=== PATIENT | male | born 1950 | race Caucasian/White ===

== ENCOUNTER 2020-08-18 15:16 | Emergency (ER) | payer OTHER, MEDICARE ==
[2020-08-18 17:47] LABS: Absolute Lymphocytes (CBC) 1.8 K/uL (0.7-4.9); Basophils % 0.8 % (0-1.3); Lymphocytes % 20.2 % (15.3-44.8); MPV 9.1 fL (7.6-11.3); RBC Red Blood Cell Count 4.63 M/uL (4.33-5.43)
[2020-08-18 18:08] LABS: Albumin 3.8 g/dL (3.4-5.0); Bilirubin Total 0.5 mg/dL (0.2-1.0); Protein, Total 6.8 g/dL (6.4-8.2)
--- NOTE | 2020-08-18 18:10 | RAD REPORT ---
EXAM DESCRIPTION: CT - Head Brain Wo Cont - 08/18/2020 6:00 pm CLINICAL HISTORY: Headache COMPARISON: None TECHNIQUE: Computed axial tomography of the head was obtained. IV contrast was not requested. All CT scans are performed using dose optimization technique as appropriate and may include automated exposure control or mA/KV adjustment according to patient size. FINDINGS: An intracranial bleed is not seen . The ventricles are normal in caliber. No extra-axial fluid collection is noted. A 3.3 centimeter low-density area left basal ganglia extending into the left internal capsule compati ble with an old CVA. 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 2.3 centimeter low-density area right basal ganglia extending into [place] radiata has the appearance of a late subacute or old infarct. Left maxillary sinusitis If patient's symptoms persist MRI of the brain would be recommended.
--- NOTE | 2020-08-18 19:05 | EDPHYS ---
Physician Documentation [facility] Name: Aydin Aldridge Age: 69 yrs Sex: Male : 1950 Arrival Date: 08/18/2020 Time: 15:21 Bed 7 Private MD: ED Physician Phuc Todd HPI: 08/18 17:32 This 69 yrs old Male presents to ER via Ambulatory with complaints of High pm1 Blood Pressure. 17:32 The patient has elevated blood pressure and discovered this at home, with a home pm1 device. Onset: The symptoms/episode began/occurred yesterday. Associated signs and symptoms: Pertinent positives: headache, fatigue for 2 days, Pertinent negatives: chest pain, dizziness, visual changes, vomiting, shortness of breath. Severity of symptoms: in the emergency department the blood pressure is unchanged. The patient has been recently seen by a physician: the patient's primary care provider, Dr. Novak with similar presenting complaints, blood pressure was within normal limits at the patient's recent PCP visit but he reports that his systolic readings have been elevated to the 180s. 17:32 Patient presenting to the ER because he is concerned that his blood pressure can lead pm1 to another stroke. No new neuro deficits present. Historical: - Allergies: 15:53 No Known Allergies; ll1 - PMHx: 15:58 CVA; Hypertension; metoprolol; Diabetes - NIDDM; metformin; High Cholesterol; ll1 atorvastatin; - PSHx: 15:58 knee SX x 2; Tonsillectomy; ll1 - Immunization history:: Flu vaccine is not up to date. Client reports receiving the 1st dose of the Covid vaccine. - Social history:: Smoking status: Patient denies any tobacco usage or history of. ROS: 17:32 Eyes: Negative for injury, pain, redness, and discharge, ENT: Negative for injury, pm1 pain, and discharge, Neck: Negative for injury, pain, and swelling, Cardiovascular: Negative for chest pain, palpitations, and edema, Respiratory: Negative for shortness of breath, cough, wheezing, and pleuritic chest pain, Abdomen/GI: Negative for abdominal pain, nausea, vomiting, diarrhea, and constipation. 17:32 Back: Negative for injury and pain, MS/Extremity: Negative for injury and deformity, Skin: Negative for injury, rash, and discoloration. 17:32 Constitutional: Positive for fatigue, Negative for body aches, fever, poor PO intake. 17:32 Neuro: Positive for headache, Negative for numbness, tingling, weakness. Exam: 17:32 Constitutional: This is a well developed, well nourished patient who is awake, alert, pm1 and in no acute distress. Head/Face: Normocephalic, atraumatic. 17:32 Back: No spinal tenderness. No costovertebral tenderness. Full range of motion. 17:32 Skin: Warm, dry with normal turgor. Normal color with no rashes, no lesions, and no evidence of cellulitis. MS/ Extremity: Pulses equal, no cyanosis. Neurovascular intact. Full, normal range of motion. 17:32 Cardiovascular: Exam negative for acute changes, Rate: normal, Rhythm: regular, Pulses: no pulse deficits are appreciated, Edema: is not appreciated. 17:32 Respiratory: Exam negative for acute changes, respiratory distress, shortness of breath, Breath sounds: are clear throughout. 17:32 Abdomen/GI: Inspection: abdomen appears normal, Palpation: abdomen is soft and non-tender, in all quadrants. 17:32 Neuro: Exam negative for acute changes, Orientation: is normal, Mentation: is normal, Motor: is normal, moves all fours, Sensation: is normal, no obvious gross deficits. Vital Signs: 15:53 BP 179 / 91; Pulse 96; Resp 17; Temp 98.1; Pulse Ox 99% on R/A; Weight 83.91 kg; Height ll1 5 ft. 9 in. (175.26 cm); Pain 0/10; 18:29 BP 148 / 82; Pulse 88; Resp 15; Pulse Ox 99% on R/A; hb 19:00 BP 148 / 84 LA Supine (man/); hb 15:53 Body Mass Index 27.32 (83.91 kg, 175.26 cm) ll1 MDM: 17:30 Patient medically screened. pm1 17:32 ED course: Patient and not interested in getting EKG or chest x-ray. pm1 18:43 Counseling: I had a detailed discussion with the patient and/or guardian regarding: the pm1 historical points, exam findings, and any diagnostic results supporting the discharge/admit diagnosis, lab results, radiology results, I discussed the findings with the patient and and they do not know if his prior imaging had the 2.3 centimeter low-density area in the right basal ganglia. Patient last MRI at [place] in May. Patient without any neuro deficit changes and he does not want to stay in the hospital. I discussed the findings with with Dr. Todd and he recommended I discuss the plan of care with Dr. Novak: follow up tomorrow in the office tomorrow and get MRI if needed. Patient without any new neuro deficits and likely old infarcts. 18:57 Data reviewed: vital signs. Data interpreted: Pulse oximetry: on room air is 99 %. pm1 Interpretation: normal. 19:06 Physician consultation: Zaid Novak MD was called at 18:53, was contacted at 18:53, pm1 regarding patient's condition, He is aware of CT head findings and said that they are old. Regarding left maxillary sinusitis on CT, do not treat with antibiotics since no complaints or symptoms of sinusitis. He will see the patient tomorrow in the office. He recommended a manual blood pressure reading in the ER. It was 148/84. 08/18 17:31 Order name: CBC with Diff; Complete Time: 18:56 pm1 08/18 17:31 Order name: CMP; Complete Time: 18:13 pm1 08/18 17:31 Order name: CT Head Brain wo Cont; Complete Time: 18:13 pm1 08/18 17:31 Order name: IV Saline Lock; Complete Time: 17:40 pm1 Administered Medications: No medications were administered Disposition: 08/18/20 19:04 Discharged to Home. Impression: Essential (primary) hypertension, Headache. - Condition is Stable. - Discharge Instructions: General Headache Without Cause, Hypertension, How to Take Your Blood Pressure, [id number], DASH Eating Plan, Managing Your Hypertension. - Medication Reconciliation Form, Thank You Letter, Antibiotic Education, Prescription Opioid Use form. - Follow up: Emergency Department; When: As needed; Reason: Worsening of condition. Follow up: Zaid Novak MD; When: Tomorrow; Reason: Recheck today's complaints, Continuance of care, Re-evaluation by your physician. - Problem is new. - Symptoms have improved. Addendum: 08/21/2020 17:29 Co-signature as Attending Physician, Phuc Todd MD. marilee parmar Signatures: Dispatcher [employer] EDMS Phuc Todd MD MD pkl Mickey Huggins, MAINTENANCE SHOP CLERK MAINTENANCE SHOP CLERK pm1 Meka Dee, RN RN hb Rene Box RN RN ll1 Corrections: (The following items were deleted from the chart) 08/18 19:13 19:04 08/18/2020 19:04 Discharged to Home. Impression: Essential (primary) pm1 hypertension; Headache. Condition is Stable. Forms are Medication Reconciliation Form, Thank You Letter, Antibiotic Education, Prescription Opioid Use. Follow up: Emergency Department; When: As needed; Reason: Worsening of condition. Follow up: Private Physician; When: 2 - 3 days; Reason: Recheck today's complaints, Continuance of care, Re-evaluation by your physician. Problem is new. Symptoms have improved. pm1 19:20 19:13 08/18/2020 19:04 Discharged to Home. Impression: Essential (primary) hb hypertension; Headache. Condition is Stable. Discharge Instructions: General Headache Without Cause, Hypertension, How to Take Your Blood Pressure, [id number], DASH Eating Plan, Managing Your Hypertension. Forms are Medication Reconciliation Form, Thank You Letter, Antibiotic Education, Prescription Opioid Use. Follow up: Emergency Department; When: As needed; Reason: Worsening of condition. Follow up: Zaid Novak; When: Tomorrow; Reason: Recheck today's complaints, Continuance of care, Re-evaluation by your physician. Problem is new. Symptoms have improved. pm1
--- NOTE | 2020-08-18 19:05 | ER ---
Nurse's Notes [facility] Name: Aydin Aldridge Age: 69 yrs Sex: Male : 1950 Arrival Date: 08/18/2020 Time: 15:21 Bed 7 Private MD: Diagnosis: Essential (primary) hypertension;Headache Presentation: 08/18 15:53 Chief complaint: Patient states: High BP for 1 day. BP 185/106, stroke in April. Not ll1 feeling good, ROBBINS, tired, fatigue for 2 days. Coronavirus screen: Client denies travel out of the [place] in the last 14 days. At this time, the client does not indicate any symptoms associated with coronavirus-19. Ebola Screen: Patient denies travel to an Ebola-affected area in the 21 days before illness onset. Initial Sepsis Screen: Does the patient meet any 2 criteria? HR > 90 bpm. No. Patient's initial sepsis screen is negative. Does the patient have a suspected source of infection? No. Patient's initial sepsis screen is negative. Risk Assessment: Do you want to hurt yourself or someone else? Patient reports no desire to harm self or others. Onset of symptoms was August 17, 2020. 15:53 Method Of Arrival: Ambulatory ll1 15:53 Acuity: JORI 2 ll1 Historical: - Allergies: 15:53 No Known Allergies; ll1 - PMHx: 15:58 CVA; Hypertension; metoprolol; Diabetes - NIDDM; metformin; High Cholesterol; ll1 atorvastatin; - PSHx: 15:58 knee SX x 2; Tonsillectomy; ll1 - Immunization history:: Flu vaccine is not up to date. Client reports receiving the 1st dose of the Covid vaccine. - Social history:: Smoking status: Patient denies any tobacco usage or history of. Screenin:02 Abuse screen: Denies threats or abuse. Denies injuries from another. Nutritional hb screening: No deficits noted. Tuberculosis screening: No symptoms or risk factors identified. Fall Risk None identified. Assessment: 17:00 General: Appears in no apparent distress. Behavior is calm, cooperative. Pain: Pain hb currently is 0 out of 10 on a pain scale. at worst was 8 out of 10 on a pain scale. Neuro: Level of Consciousness is awake, alert, obeys commands, Oriented to person, place, time, situation, Reports dizziness, headache. Cardiovascular: Patient's skin is warm and dry. Respiratory: Respiratory effort is even, unlabored, Respiratory pattern is regular, symmetrical. GI: No signs and/or symptoms were reported involving the gastrointestinal system. : No signs and/or symptoms were reported regarding the genitourinary system. EENT: No signs and/or symptoms were reported regarding the EENT system. Derm: Skin is pink, warm \T\ dry. Musculoskeletal: No signs and/or symptoms reported regarding the musculoskeletal system. 18:26 Reassessment: Patient appears in no apparent distress at this time. Patient and/or hb family updated on plan of care and expected duration. Pain level reassessed. Patient is alert, oriented x 3, equal unlabored respirations, skin warm/dry/pink. Vital Signs: 15:53 BP 179 / 91; Pulse 96; Resp 17; Temp 98.1; Pulse Ox 99% on R/A; Weight 83.91 kg; Height ll1 5 ft. 9 in. (175.26 cm); Pain 0/10; 18:29 BP 148 / 82; Pulse 88; Resp 15; Pulse Ox 99% on R/A; hb 19:00 BP 148 / 84 LA Supine (man/); hb 15:53 Body Mass Index 27.32 (83.91 kg, 175.26 cm) ll1 ED Course: 15:21 Patient arrived in ED. ds1 15:53 Arm band placed on. ll1 15:56 Triage completed. ll1 17:11 Meka Dee, RN is Primary Nurse. hb 17:13 Mickey Huggins NP is PHCP. pm1 17:13 Phuc Todd MD is Attending Physician. pm1 17:40 CMP Sent. jp3 17:40 CBC with Diff Sent. jp3 17:40 Initial lab(s) drawn, by me, sent to lab. Inserted saline lock: 20 gauge in right jp3 antecubital area, using aseptic technique. Blood collected. 17:40 Patient maintains SpO2 saturation greater than 95% on room air. jp3 17:59 CT Head Brain wo Cont In Process Unspecified. EDMS 18:02 Patient has correct armband on for positive identification. Bed in low position. Call hb light in reach. 19:13 Zaid Novak MD is Referral Physician. pm1 19:20 No provider procedures requiring assistance completed. IV discontinued, intact, hb bleeding controlled, No redness/swelling at site. Administered Medications: No medications were administered Outcome: 19:04 Discharge ordered by MD. pm1 19:20 Discharged to home ambulatory, with family. hb 19:20 Condition: stable 19:20 Discharge instructions given to patient, family, Instructed on discharge instructions, follow up and referral plans. medication usage, Demonstrated understanding of instructions, follow-up care, medications. 19:20 Patient left the ED. hb Signatures: Dispatcher [employer] EDVA [place] ds1 Mickey Huggins NP F[employer] FASHIONED GARMENT KNITTER pm1 Meka Dee, RN RN Vladimir Crane jp3 Rene Box, RN RN ll1
[2020-08-18 19:26] VITALS: TEMP 98.1; O2SAT 99
[2020-08-18 19:29] VITALS: BP 148/84
== END 2020-08-18 19:20 | disposition home or self-care (01) ==
LOC: ER 15:16
DX: I10 Essential (primary) hypertension (principal); E11.9 Type 2 diabetes mellitus without complications; E78.00 Pure hypercholesterolemia, unspecified; Z86.73 Personal history of transient ischemic attack (TIA), and cerebral infarction without residual deficits
CPT/HCPCS: 36415; 70450; 80053; 85025; 99284